=== PATIENT | female | born 1975 | race Two or more races ===

== ENCOUNTER 2020-08-31 07:32 | Emergency (ER) | payer BC, OTHER ==
[~2020-08-31] VITALS: Ht 157.5 cm; Wt 64.0 kg
[2020-08-31 07:58] VITALS: BP 122/71
[2020-08-31] MEDS ORDERED: IBUPROFEN 800 MG TAB PO ONE (08:00)
== END 2020-08-31 08:59 | disposition home or self-care (01) ==
LOC: EDBD 07:32 → ER 07:32
DX: S16.1XXA Strain of muscle, fascia and tendon at neck level, initial encounter (principal); V49.9XXA Car occupant (driver) (passenger) injured in unspecified traffic accident, initial encounter; Y93.89 Activity, other specified; Y92.89 Other specified places as the place of occurrence of the external cause; Y99.8 Other external cause status
CPT/HCPCS: 72040